=== PATIENT | male | born 1960 | race Caucasian/White ===

== ENCOUNTER 2023-10-07 06:59 | Day surgery (SDC) | payer OTHER ==
[2023-10-07] MEDS ORDERED: Midazolam 1 MG/ML 2 ML SDV IV ONE (07:00)
[2023-10-07] MEDS ORDERED: Propofol 200 MG/20 ML SDV IV ONE (07:00)
[2023-10-07] MEDS ORDERED: Labetalol 100 MG/20 ML MDV IV ONE (07:00)
[2023-10-07] MEDS ORDERED: Lactated Ringers 1,000 ML IV SCH (07:00)
[2023-10-07] MEDS ORDERED: Ketamine 500 mg/10 ML MDV IV ONE (07:00)
[2023-10-07] MEDS ORDERED: Sodium Chloride 0.9% 10 ML Syringe FLUSH PRN (07:00)
[2023-10-07] MEDS ORDERED: Simethicone Drops 40 MG/0.6 ML 30 ML Bottle PO ONE (08:48)
== END 2023-10-07 10:35 | disposition home or self-care (01) ==
LOC: FB.SDS 06:59
PROVIDERS: ATTEND Surgery
DX: K64.2 Third degree hemorrhoids (principal); K57.30 Diverticulosis of large intestine without perforation or abscess without bleeding; K64.4 Residual hemorrhoidal skin tags; K21.9 Gastro-esophageal reflux disease without esophagitis; N40.0 Benign prostatic hyperplasia without lower urinary tract symptoms; Z79.1 Long term (current) use of non-steroidal anti-inflammatories (NSAID); Z79.899 Other long term (current) drug therapy
CPT/HCPCS: 00811; A9270-GY; J2250; J2704; J3490; J7120

== ENCOUNTER 2025-08-23 07:17 | Day surgery (SDC) | payer OTHER ==
[2025-08-23] MEDS ORDERED: Midazolam 1 MG/ML 2 ML SDV IV ONE (07:18)
[2025-08-23] MEDS ORDERED: fentaNYL 100 MCG/2 ML SDV IV ONE (07:18)
[2025-08-23] MEDS ORDERED: Propofol 200 MG/20 ML SDV IV ONE (07:18)
[2025-08-23] MEDS ORDERED: Sodium Chloride 0.9% 10 ML Syringe FLUSH PRN (07:30)
[2025-08-23] MEDS: Lactated Ringers 1,000 ML IV SCH (07:59)
== END 2025-08-23 10:06 | disposition home or self-care (01) ==
LOC: FB.SDS 07:17
PROVIDERS: ATTEND Surgery
DX: K29.80 Duodenitis without bleeding (principal); K29.50 Unspecified chronic gastritis without bleeding; K31.89 Other diseases of stomach and duodenum; K31.7 Polyp of stomach and duodenum; K21.00 Gastro-esophageal reflux disease with esophagitis, without bleeding; K44.9 Diaphragmatic hernia without obstruction or gangrene; I10 Essential (primary) hypertension; Z79.899 Other long term (current) drug therapy
CPT/HCPCS: 00731; 43239; 43251; 88305; 88342; A9270; J2250; J2704; J3010; J7120